=== PATIENT | male | born 1965 | race Caucasian/White ===

== ENCOUNTER 2017-02-15 09:32 | Day surgery (SDC) | payer OTHER ==
[~2017-02-15] VITALS: Ht 162.6 cm; Wt 72.0 kg
[~2017-02-15 09:32] MED LIST: HYDR-4003 PO; NPR500T PO; ROB500 PO; Sodium Chloride LOK Flush 10 mL Syringe IV PRN; fentaNYL-PF 50 mCg/mL 2 mL Inj IVPUSH PRN
[2017-02-15 10:04] VITALS: BP 125/87; PULSE 48; RESP 16; O2SAT 99
[2017-02-15] MEDS: 0.9% Sodium Chloride 1,000 ML IV SCH ×3 (10:05→10:58)
--- NOTE | 2017-02-15 11:13 | PCM.ENDCOL ---
Colonoscopy Date of Service: Feb 15, 2017 Physician Scott Bar MD Pre Procedure Diagnosis: Screening Post Procedure Dx & Findings: Hemorrhoids diverticuli Procedure Colonoscopy PROCEDURE IN DETAIL: Prep adequate Withdrawal time 15 minutes After unremarkable rectal examination the Olympus video colonoscope was inserted patient's anal canal and was advanced to cecum. Landmarks were identified including the ileocecal valve and appendiceal orifice. Scope was withdrawn systematically. Visualized colonic mucosa showed healthy shiny mucosa with normal healthy-appearing vasculature. In the right colon, there was significant amount of stools. However successfully washed. Good visualization obtained. Diverticuli noted in the sigmoid colon small multiple. In the rectum retroflexion was done which showed hemorrhoids. Anal canal was inspected carefully on the way out and hemorrhoids noted. Impression Diverticuli Hemorrhoids Recommendation Repeat colonoscopy in 10 years if there is no family history of colon cancer or polyp. Otherwise repeat in 5 years. Diverticular diet Presedation Assessment Risks and Benefits Informed consent was obtained from the patient after all risks and benefits including but not limited to drug reaction, infection, pain, bleeding, perforation, as well as alternatives were discussed. Patient monitoring Continuous pulse oximetry, cardiac monitoring, blood pressure monitoring, IV access, and oxygen at 2L per nasal cannula. Periprocedural Fentanyl: Fentanyl 100mcg Incrementally Midazolam: Midazolam 5mg Incrementally Complications There were no periprocedural complications identified. Post Procedure Plan Post Procedure Recommendations 1. Restrict activities today. 2. Resume normal activities in the morning. 3. Resume medications. 4. Patient informed of normal post procedure side effects as bloating, drowsiness, blood streaking in the stool. 5. average risk CRCS. If colon polyps come back as: -Hyperplastic- can repeat colonoscopy in 10 years -Tubular adenoma- repeat colonoscopy in 5 years -Tubulovillous/villous adenoma- repeat colonoscopy in 3 years -If any dysplasia- return to clinic as soon as possible 6. Please don't hesitate to call me with any questions. Scott Bar MD Feb 15, 2017 11:13
[2017-02-15 11:15] VITALS: BP 109/69; PULSE 59; RESP 16; O2SAT 97
[2017-02-15 11:25] VITALS: BP 106/52; PULSE 49; RESP 16; O2SAT 96
[2017-02-15 11:35] VITALS: BP 95/51; PULSE 46; RESP 16; O2SAT 96
== END 2017-02-15 23:59 | disposition home or self-care (01) ==
LOC: END 09:32
PROVIDERS: ATTEND Internal Medicine
DX: Z12.11 Encounter for screening for malignant neoplasm of colon (principal); K57.30 Diverticulosis of large intestine without perforation or abscess without bleeding; K64.9 Unspecified hemorrhoids; M79.675 Pain in left toe(s); M79.89 Other specified soft tissue disorders; B35.1 Tinea unguium; B35.3 Tinea pedis
CPT/HCPCS: 99153; G0121; G0500; J2250; J3010; J7030